=== PATIENT | female | born 1940 | race Caucasian/White ===

== ENCOUNTER 2023-02-12 15:58 | Observation (INO) | payer OTHER ==
[~2023-02-12] VITALS: Ht 167.6 cm; Wt 83.4 kg
[~2023-02-12 15:58] MED LIST: ALB2.5IS; ALEN70TA74; AMLO1TAB22; AMLO1TAB23; BUSP7.5T8; DULO-141; GLIP2.5T9; HYDR-4227; HYDR-4297; METO1TAB9; NIFEDIPINE; WARF4TAB69
[2023-02-12] MEDS ORDERED: ALBUTEROL SULF 2.5 MG/0.5ML(0.5%) NEB SOLN NEB ONE ×2 (16:00→20:15)
[2023-02-12] MEDS ORDERED: IPRATROPIUM BROM 0.5 MG/2.5ML INH SOL NEB ONE ×2 (16:00→20:15)
[2023-02-12] MEDS ORDERED: methylPREDNISolone SOD SUCC 125 MG/2 ML VL IV ONE (16:00)
[2023-02-12 16:25] VITALS: PULSE 101; RESP 18; O2SAT 99
[2023-02-12 16:59] LABS: Basophils # (auto) 0 10 ^3/uL (0-0.2); Basophils % (auto) 0.2 % (0.0-2.0); Eosinophils # (auto) 0 10 ^3/uL (0-0.8); Hematocrit 38.8 % (36.0-46.0); Hemoglobin 12.9 g/dL (12.2-16.2); Lymphocytes # (auto) 0.9 10 ^3/uL (0.4-5.4); Lymphocytes % (auto) 5.4 % (10.0-50.0); Mean Corpuscular Hgb Conc. 33.3 g/dL (32.0-36.0); Mean Corpuscular Volume 90.1 fL (80.0-100.0); Monocytes % (auto) 6.1 % (0.0-12.0); Neutrophils # (auto) 14.4 10 ^3/uL (1.6-8.6); Neutrophils % (auto) 88.3 % (37.0-80.0); Nucleated Red Blood Cells % 0.1 %; Red Blood Cells 4.31 10^6/uL (4.0-5.20); Red Cell Distribution Width 13.2 % (11.8-14.3); White Blood Cell 16.3 10^3/uL (4.4-10.8)
[2023-02-12 17:28] LABS: Alanine Aminotransferase 13 U/L (7-40); Alkaline Phosphatase 95 U/L (46-116); Anion Gap 9 (5-15); Calcium 9.5 mg/dL (8.7-10.4); Carbon Dioxide 30 mmol/L (20-30); Chloride 98 mmol/L (98-107); Glucose 208 mg/dL (74-106); Potassium 4.9 mmol/L (3.5-5.1); Sodium 137 mmol/L (136-145)
[2023-02-12 17:29] LABS: Albumin 4.1 g/dL (3.2-4.8); Aspartate Aminotransferase 19 U/L (13-40); BUN/Creatinine Ratio 34.1 (10.0-20.0); Bilirubin, Total 0.4 mg/dL (0.2-1.0); Blood Urea Nitrogen 47 mg/dL (9-23); Total Protein 6.9 g/dL (5.7-8.2)
[2023-02-12 17:49] LABS: COVID19 ANTIGEN SOFIA FIA NEGATIVE (NEGATIVE); Rapid Influenza A Negative (Negative)
[2023-02-12 17:50] LABS: Rapid Influenza B Positive (Negative)
[2023-02-12 19:30] VITALS: PULSE 87; RESP 25; O2SAT 94
[2023-02-12 20:31] LABS: Base Excess 4.5 mmol/L (-2.0-2.0)
[2023-02-12] MEDS ORDERED: ONDANSETRON HCL 4 MG/2 ML VIAL IV PRN (23:15)
[2023-02-12] MEDS ORDERED: NITROGLYCERIN 0.4 MG SL TAB SL PRN (23:15)
[2023-02-12] MEDS ORDERED: MORPHINE SULFATE INJ 2 MG/ml SYRG IV PRN (23:15)
[2023-02-12] MEDS ORDERED: ENOXAPARIN SOD 40 MG/0.4 ML SYRINGE SC ONE (23:30)
[2023-02-12] MEDS ORDERED: VANCOMYCIN PER PHARMACY 0 MG IV SCH (23:30)
[2023-02-12] MEDS ORDERED: DEXTROSE (50%) 50ML SYRG IV PRN (23:45)
[2023-02-13] VITALS (13 sets, daily range): BP systolic 126–175; BP diastolic 67–83; PULSE 65–102; RESP 20–29; TEMP 97.8–98; O2SAT 92–100
[2023-02-13] MEDS: IPRATROPIUM BROM 0.5 MG/2.5ML INH SOL NEB SCH ×4 (00:10→23:03)
[2023-02-13] MEDS: ALBUTEROL SULF 2.5 MG/0.5ML(0.5%) NEB SOLN NEB SCH ×4 (00:10→23:03)
[2023-02-13] MEDS ORDERED: VANCOMYCIN 1GM/200ML 200 ML IV SCH (02:00)
[2023-02-13] MEDS ORDERED: PIPERACILLIN-TAZOB 3.375GM 100 ML IV SCH (06:00)
[2023-02-13 06:22] LABS: Basophils # (auto) 0 10 ^3/uL (0-0.2); Eosinophils # (auto) 0 10 ^3/uL (0-0.8); Hematocrit 37.2 % (36.0-46.0); Hemoglobin 12.3 g/dL (12.2-16.2); Lymphocytes # (auto) 0.9 10 ^3/uL (0.4-5.4); Lymphocytes % (auto) 6.9 % (10.0-50.0); Mean Corpuscular Hemoglobin 30.2 pg (28.0-32.0); Mean Corpuscular Hgb Conc. 33.1 g/dL (32.0-36.0); Mean Corpuscular Volume 91.1 fL (80.0-100.0); Monocytes # (auto) 0.6 10 ^3/uL (0-1.3); Monocytes % (auto) 4.4 % (0.0-12.0); Neutrophils # (auto) 11.3 10 ^3/uL (1.6-8.6); Neutrophils % (auto) 88.7 % (37.0-80.0); Red Blood Cells 4.09 10^6/uL (4.0-5.20); Red Cell Distribution Width 13.5 % (11.8-14.3); White Blood Cell 12.7 10^3/uL (4.4-10.8)
[2023-02-13 06:34] LABS: INR 1.16 (0.9-1.15); Prothrombin Time 12.1 sec (9.3-11.8)
[2023-02-13 06:39] LABS: Alanine Aminotransferase 12 U/L (7-40); Albumin 3.8 g/dL (3.2-4.8); Alkaline Phosphatase 88 U/L (46-116); Anion Gap 8 (5-15); Aspartate Aminotransferase 15 U/L (13-40); BUN/Creatinine Ratio 24.5 (10.0-20.0); Calcium 9.7 mg/dL (8.5-10.1); Carbon Dioxide 30 mmol/L (20-30); Chloride 98 mmol/L (98-107); Glucose 302 mg/dL (74-106); Potassium 4.4 mmol/L (3.5-5.1); Sodium 136 mmol/L (136-145)
[2023-02-13 06:40] LABS: Bilirubin, Total 0.4 mg/dL (0.2-1.0); Total Protein 6.6 g/dL (5.7-8.2)
[2023-02-13 06:45] LABS: Blood Urea Nitrogen 35 mg/dL (9-23)
[2023-02-13] MEDS: methylPREDNISolone SOD SUCC 125 MG/2 ML VL IV SCH ×3 (06:45→21:25)
[2023-02-13] MEDS: InsuLIN REG 1unit/0.01ml Soln (100units/ml) SC SCH ×4 (06:56→22:00)
[2023-02-13] MEDS: ACCU-CHEK COMFORT CURVE STRIP VI SCH ×4 (06:57→22:00)
[2023-02-13] MEDS: hydrALAZINE HCL 20 MG/ML VL IV PRN ×2 (11:10→18:44)
[2023-02-13] MEDS ORDERED: levoFLOXacin 500MG 100 ML IV ONE (12:00)
[2023-02-13] MEDS: SODIUM CHLORIDE 0.9% 1,000 ML IV SCH (12:58)
[2023-02-13] MEDS ORDERED: CLON0.1T PO (14:02)
[2023-02-13] MEDS ORDERED: PRED20TA2 PO (14:02)
[2023-02-13] MEDS ORDERED: LISI10TA34 PO (14:02)
[2023-02-13] MEDS ORDERED: ALBU108A5 INH (14:02)
[2023-02-13] MEDS: OSELTAMIVIR 30 MG CAP PO SCH (14:45)
[2023-02-13] MEDS: VANCOMYCIN 1GM/200ML 200 ML IV SCH (21:10)
[2023-02-13] MEDS: APIXABAN 2.5 MG TAB PO SCH (21:10)
[2023-02-14] VITALS (11 sets, daily range): BP systolic 154–160; BP diastolic 77–99; PULSE 78–121; RESP 17–24; TEMP 97.8–98.4; O2SAT 90–99
[2023-02-14] MEDS: ALBUTEROL SULF 2.5 MG/0.5ML(0.5%) NEB SOLN NEB SCH ×3 (00:56→11:58)
[2023-02-14] MEDS: IPRATROPIUM BROM 0.5 MG/2.5ML INH SOL NEB SCH ×3 (00:56→11:58)
[2023-02-14] MEDS: VANCOMYCIN 1GM/200ML 200 ML IV SCH (03:00)
[2023-02-14 05:48] LABS: Basophils # (auto) 0 10 ^3/uL (0-0.2); Basophils % (auto) 0.1 % (0.0-2.0); Eosinophils # (auto) 0 10 ^3/uL (0-0.8); Eosinophils % (auto) 0.1 % (0.0-7.0); Hematocrit 37.3 % (36.0-46.0); Hemoglobin 12.6 g/dL (12.2-16.2); Lymphocytes # (auto) 0.6 10 ^3/uL (0.4-5.4); Lymphocytes % (auto) 5.9 % (10.0-50.0); Mean Corpuscular Hgb Conc. 33.8 g/dL (32.0-36.0); Mean Corpuscular Volume 91.8 fL (80.0-100.0); Monocytes # (auto) 0.4 10 ^3/uL (0-1.3); Monocytes % (auto) 3.9 % (0.0-12.0); Neutrophils # (auto) 9.3 10 ^3/uL (1.6-8.6); Red Blood Cells 4.06 10^6/uL (4.0-5.20); Red Cell Distribution Width 13.6 % (11.8-14.3); White Blood Cell 10.4 10^3/uL (4.4-10.8)
[2023-02-14 05:59] LABS: Alanine Aminotransferase 10 U/L (7-40); Albumin 3.8 g/dL (3.2-4.8); Alkaline Phosphatase 74 U/L (46-116); Anion Gap 7 (5-15); Aspartate Aminotransferase 19 U/L (13-40); BUN/Creatinine Ratio 23.5 (10.0-20.0); Bilirubin, Total 0.5 mg/dL (0.2-1.0); Blood Urea Nitrogen 28 mg/dL (9-23); Calcium 9.5 mg/dL (8.7-10.4); Carbon Dioxide 27 mmol/L (20-30); Chloride 101 mmol/L (98-107); Glucose 180 mg/dL (74-106); Potassium 4.4 mmol/L (3.5-5.1); Sodium 135 mmol/L (136-145); Total Protein 6.6 g/dL (5.7-8.2)
[2023-02-14] MEDS: InsuLIN REG 1unit/0.01ml Soln (100units/ml) SC SCH ×2 (06:16→11:30)
[2023-02-14] MEDS: hydrALAZINE HCL 20 MG/ML VL IV PRN (06:23)
[2023-02-14] MEDS: ACCU-CHEK COMFORT CURVE STRIP VI SCH ×2 (06:33→11:30)
[2023-02-14] MEDS ORDERED: FLUCONAZOLE 100 MG TAB PO ONE (09:15)
[2023-02-14] MEDS ORDERED: levoFLOXacin 250MG 50 ML IV SCH (10:00)
[2023-02-14] MEDS ORDERED: NYSTATIN TOPICAL CREAM 15GM TOP SCH (10:00)
[2023-02-14] MEDS: OSELTAMIVIR 30 MG CAP PO SCH (10:25)
[2023-02-14] MEDS: SODIUM CHLORIDE 0.9% 1,000 ML IV SCH (10:25)
[2023-02-14] MEDS: APIXABAN 2.5 MG TAB PO SCH (10:26)
[2023-02-14] MEDS ORDERED: OSELTAMIVIR 30 MG CAP PO SCH (22:00)
== END 2023-02-14 15:12 ==
LOC: EDUNIT# 15:58 → ER 15:58 → EDBD 15:58 → OVERFLOW 23:16 → CENTRAL 02-13 10:10
PROVIDERS: ADMIT Internal Medicine; ATTEND Internal Medicine
DX: J96.21 Acute and chronic respiratory failure with hypoxia (principal); Z20.822 Contact with and (suspected) exposure to COVID-19; J44.1 Chronic obstructive pulmonary disease with (acute) exacerbation; F03.90 Unspecified dementia, unspecified severity, without behavioral disturbance, psychotic disturbance, mood disturbance, and anxiety; J10.1 Influenza due to other identified influenza virus with other respiratory manifestations; I25.10 Atherosclerotic heart disease of native coronary artery without angina pectoris; E11.9 Type 2 diabetes mellitus without complications; I10 Essential (primary) hypertension; E78.5 Hyperlipidemia, unspecified; Z86.73 Personal history of transient ischemic attack (TIA), and cerebral infarction without residual deficits; Z79.84 Long term (current) use of oral hypoglycemic drugs; Z86.61 Personal history of infections of the central nervous system
CPT/HCPCS: 36415; 36600; 71045; 80053; 82805; 82962; 83605; 83880; 84484; 85025; 85610; 87040; 87077; 87081; 87186; 87426; 87804; 93005; 94640; 96365; 96366; 96368; 96372; 96375; 96376; 99291; G0378; J0360; J1650; J1815; J1956; J2930; J3370; J7644; G9035

== ENCOUNTER 2024-04-03 01:59 | Inpatient (IN) | payer OTHER ==
[~2024-04-03] VITALS: Ht 165.1 cm; Wt 89.5 kg
[~2024-04-03 01:59] MED LIST changes: +ALBU108A5 INH; +CLON0.1T PO; +HYDR-2792; -HYDR-4227; -HYDR-4297; +HYDR50TA47; +LISI10TA34 PO; +PRED20TA2 PO
--- NOTE | 2024-04-03 02:21 | ED.PDOC ---
Altered Mental Status HPI Comments 84-year-old female came to ER via EMS for altered level of consciousness. Per granddaughter who accompanies patient, patient was noted to be laying at bed for the past 2 days. Yesterday, was noted by family that patient has become unresponsive, would be able to answer yes or no only to questions. Patient denies being in any pain. Patient does have history of hypertension, diabetes, AFIB, COPD and CVA (18 years ago). 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 Allergies: Coded Allergies: Penicillins (Verified Allergy, Unknown, 02/13/23) Home Meds Reported Medications Albuterol Sulfate (Albuterol Sulfate Hfa) 108 Mcg/Act Aer, INH 02/13/23 Lisinopril (Lisinopril) 10 Mg Tab, 1 TAB PO DAILY 02/13/23 Clonidine Hydrochloride (Clonidine Hcl) 0.1 Mg Tab, 1 TAB PO TID 02/13/23 Prednisone (Prednisone) 20 Mg Tab, 1 TAB PO BID 02/13/23 Amlodipine Besylate (Amlodipine Besylate) 10 Mg Tab 07/30/18 Warfarin Sodium (Warfarin Sodium) 2 Mg Tab 07/30/18 Albuterol Sulfate (Ventolin) 2.5 Mg/3 Ml Nb 07/30/18 Amlodipine Besylate (Amlodipine Besylate) 5 Mg Tab 07/30/18 Metoprolol Succinate (Metoprolol Succinate Er) 100 Mg Tab 07/30/18 Alendronate Sodium (Alendronate Sodium) 70 Mg Tab 07/30/18 Glipizide (Glipizide Er) 2.5 Mg Tab 07/30/18 [Nifedipine] No Conflict Check 07/30/18 Hydralazine Hcl (Hydralazine Hcl) 10 Mg Tab 07/30/18 Hydralazine Hcl (Hydralazine Hcl) 50 Mg Tab 07/30/18 Buspirone Hcl (Buspirone Hcl) 7.5 Mg Tab 07/30/18 Duloxetine Hydrochloride (Duloxetine Hydrochloride) 30 Mg Cap 07/30/18 Information Source: Relative (GrandChild), Emergency Med Personnel Mode of Arrival: EMS Severity: Unable to Care for Self, Unresponsive Timing: Hours Duration: Since onset Prehospital treatment: Accucheck Quality: Decreased Alertness, Change in Behavior, Confusion Recent: None History of: CVA, Diabetes Past Medical History PAST MEDICAL HISTORY: AFIB, Cancer, COPD, CVA, DM, HTN Surgical History: Denies all surgeries IT PORTFOLIO MANAGER History: No Pertinent IT PORTFOLIO MANAGER History Family History Family History: Reviewed,noncontributory to illness Social History Smoker: Non-Smoker Alcohol: Denies ETOH Use Drugs: Denies Drug Use Lives In: Home Unable to Obtain due to: Altered Mental Status Physical Exam General Appearance: No Apparent Distress, Normal HEENT: Normal ENT Inspection, Pharynx Normal, TMs Normal Neck: Full Range of Motion, Non-Tender, Normal, Normal Inspection Respiratory: Chest Non-Tender, Lungs Clear, No Accessory Muscle Use, No Respir atory Distress, Normal Breath Sounds Cardiovascular: No Edema, No JVD, No Murmur, No Gallop, Normal Peripheral Pulses, Regular Rate/Rhythm Breast Exam: Deferred Gastrointestinal: No Organomegaly, Non Tender, No Pulsatile Mass, Normal Bowel Sounds, Soft Genitalia: Deferred Pelvic: Deferred Rectal: Deferred Extremities: No calf tenderness, Normal capillary refill, Normal inspection, Normal range of motion, Non-tender, No pedal edema Musculoskeletal : Apperance: Normal 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 Was a procedure done?: No Differential Diagnosis (ALOC) Differential Diagnosis: Encephalopathy, Hypoxemia, CVA, Mass Lesion, Heart Failure, Renal Failure X-Ray, Labs, Meds, VS Vital Signs Date Time Temp Pulse Resp B/P (MAP) Pulse Ox O2 Delivery O2 Flow Rate FiO2 04/03/24 03:02 76 18 96 Nasal Cannula* 2 28 04/03/24 02:51 98.4 85 20 194/104 (134) 97 98.4 04/03/24 02:06 97.9 93 25 183/114 (137) 98 04/03/24 02:03 100 Lab Test 04/03/24 04:30 04/03/24 02:29 Range/Units Urine Color Light orange Yellow Urine Clarity Turbid H Clear Urine pH 5.5 5.0-9.0 Urine Specific [place] 1.027 1.001-1.035 Urine Protein 2+ H Negative Urine Ketones Trace Negative Urine Blood Trace H Negative /uL Urine Nitrite Negative Negative Urine Bilirubin 1+ H Negative Urine Urobilinogen 2 H Negative mg/dL Urine Leukocyte Esterase Negative Negative /uL Urine RBC 2 0 - 4 /hpf Urine Microscopic WBC 8 H 0-5 /HPF Urine Squamous Epithelial Cells None seen <5 /hpf Urine Bacteria Few H None Seen /hpf Urine Hyaline Casts Few 0 - 2 /lpf Urine Granular Casts Mod 0 /lpf Urine Mucus Few None Seen Urine Glucose 1+ H Normal mg/dL White Blood Count 8.9 4.4-10.8 10^3/uL Red Blood Count 4.65 4.0-5.20 10^6/uL Hemoglobin 13.7 12.2-16.2 g/dL Hematocrit 40.5 36.0-46.0 % Mean Corpuscular Volume 87.2 80.0-100.0 fL Mean Corpuscular Hemoglobin 29.4 28.0-32.0 pg Mean Corpuscular Hemoglobin Concent 33.7 32.0-36.0 g/dL Red Cell Distribution Width 14.9 H 11.8-14.3 % Platelet Count 200 140-450 10^3/uL Mean Platelet Volume 7.8 6.9-10.8 fL Neutrophils (%) (Auto) 74.0 37.0-80.0 % Lymphocytes (%) (Auto) 16.9 10.0-50.0 % Monocytes (%) (Auto) 5.3 0.0-12.0 % Eosinophils (%) (Auto) 2.6 0.0-7.0 % Basophils (%) (Auto) 1.2 0.0-2.0 % Neutrophils # (Auto) 6.6 1.6-8.6 10 ^3/uL Lymphocytes # (Auto) 1.5 0.4-5.4 10 ^3/uL Monocytes # (Auto) 0.5 0-1.3 10 ^3/uL Eosinophils # (Auto) 0.2 0-0.8 10 ^3/uL Basophils # (Auto) 0.1 0-0.2 10 ^3/uL Nucleated Red Blood Cells 0.2 % Sodium Level 138 136-145 mmol/L Potassium Level 4.3 3.5-5.1 mmol/L Chloride Level 103 98-107 mmol/L Carbon Dioxide Level 26 20-31 mmol/L Anion Gap 9 5-15 Blood Urea Nitrogen 20 9-23 mg/dL Creatinine 1.48 H 0.550-1.02 mg/dL Glomerular Filtration Rate Calc 34 >90 mL/min BUN/Creatinine Ratio 13.5 10.0-20.0 Serum Glucose 250 H 74-106 mg/dL Lactic Acid Level 1.7 0.4-2.0 mmol/L Calcium Level 10.6 H 8.7-10.4 mg/dL Troponin I High Sensitivity 14 </=34 ng/L B-Type Natriuretic Peptide 274.78 0-100 pg/mL Time of 1ST Reevaluation: 02:14 Reevaluation 1ST: Unchanged Patient Education/Counseling: Diagnosis, Treatment Family Education/Counseling: Diagnosis, Treatment Departure 1 Departure Time of Disposition: 05:24 (Patient with worsening confusion. Patient is A&O times 0. Workup so far is unrevealing. We will admit patient for further wo rkup.) Impression: Primary Impression: Metabolic encephalopathy Additional Impression: Generalized weakness Disposition: ADMITTED INPATIENT Admit to: Med Surg Condition: Serious Critical Care Note Critical Care Time?: Yes (35 min-critical care time only) Critical care comment: Altered level of consciousness Stability Stability form required: No Heart Score Heart Score: Heart Score Response (Comments) Value History N/A 0 EKG N/A 0 Age N/A 0 Risk Factors N/A 0 Troponin N/A 0 Total 0 I personally scribed for KYLAH PINZON MD ([email or web address]) on 04/03/24 at 02:21. Electronically submitted by Aman Davis ([email or web address]). KYLAH PINZON MD Apr 03, 2024 02:21
[2024-04-03 02:53] LABS: Basophils # (auto) 0.1 10 ^3/uL (0-0.2); Basophils % (auto) 1.2 % (0.0-2.0); Eosinophils # (auto) 0.2 10 ^3/uL (0-0.8); Eosinophils % (auto) 2.6 % (0.0-7.0); Hematocrit 40.5 % (36.0-46.0); Hemoglobin 13.7 g/dL (12.2-16.2); Lymphocytes # (auto) 1.5 10 ^3/uL (0.4-5.4); Lymphocytes % (auto) 16.9 % (10.0-50.0); Mean Corpuscular Hemoglobin 29.4 pg (28.0-32.0); Mean Corpuscular Hgb Conc. 33.7 g/dL (32.0-36.0); Mean Corpuscular Volume 87.2 fL (80.0-100.0); Monocytes # (auto) 0.5 10 ^3/uL (0-1.3); Monocytes % (auto) 5.3 % (0.0-12.0); Neutrophils # (auto) 6.6 10 ^3/uL (1.6-8.6); Nucleated Red Blood Cells % 0.2 %; Platelet Count (auto) 200 10^3/uL (140-450); Red Blood Cells 4.65 10^6/uL (4.0-5.20); Red Cell Distribution Width 14.9 % (11.8-14.3); White Blood Cell 8.9 10^3/uL (4.4-10.8)
[2024-04-03 03:02] VITALS: PULSE 76; RESP 18; O2SAT 96
[2024-04-03 03:03] LABS: Chloride 103 mmol/L (98-107); Potassium 4.3 mmol/L (3.5-5.1); Sodium 138 mmol/L (136-145)
[2024-04-03 03:04] LABS: Anion Gap 9 (5-15); Carbon Dioxide 26 mmol/L (20-31)
[2024-04-03 03:09] LABS: BUN/Creatinine Ratio 13.5 (10.0-20.0); Blood Urea Nitrogen 20 mg/dL (9-23)
[2024-04-03 03:13] LABS: Calcium 10.6 mg/dL (8.7-10.4); Glucose 250 mg/dL (74-106)
--- NOTE | 2024-04-03 04:04 | DVH ---
EXAM: CT HEAD WITHOUT CONTRAST INDICATION: ams TECHNIQUE: CT of the head without intravenous contrast. Coronal and sagittal reformatted images are submitted. Radiation Dose : 1. Head: CT Dose: CTDI volume is 55.6 mGy. Dose-length product is 982.5 mGy*cm The dose indicators for CT are the volume Computed Tomography (CT) Dose Index (CTDIvol) and the Dose Length Product (DLP), and are measured in units of mGy and mGy-cm, respectively. These indicators are not patient dose, but values generated from the CT scanner acquisition factors. The report includes radiation exposure data for exposures received during this examination. All CT scans at this medical facility are performed using dose modulation techniques as appropriate to a performed exam including the following: Automated exposure control was utilized; adjustment of the MA and/or KV according to patient size; and use of iterative reconstruction technique. COMPARISON: None FINDINGS: There is no evidence of acute intracranial hemorrhage, extra-axial collection, mass effect, midline s hift, herniation or hydrocephalus. There is encephalomalacia in the left frontal lobe. There are periventricular and subcortical hypoden sities, nonspecific, but likely reflecting sequelae of chronic microvascular ischemic changes. The ventricles, sulci and cisterns are age appropriate. The guillaume-white differentiation is intact. The visualized paranasal sinuses and mastoid air cells are clear. No depressed calvarial fracture. The surrounding soft tissues are unremarkable. IMPRESSION: 1. No evidence of acute intracranial abnormality.
[2024-04-03 04:59] LABS: Urine Bacteria FEW /hpf (None Seen); Urine Blood TRACE /uL (Negative); Urine Clarity Turbid (Clear); Urine Hyaline Cast FEW /lpf (0 - 2); Urine Mucus FEW (None Seen); Urine Protein, UAD 2+ (Negative); Urine Specific Gravity 1.027 (1.001-1.035); Urine Squamous Epithelial Cell None Seen /hpf (<5); Urine Urobilinogen 2 mg/dL (Negative); Urine WBC 8 /HPF (0-5); Urine pH 5.5 (5.0-9.0)
[2024-04-03 05:11] LABS: Urine Color LIGHT ORANGE (Yellow)
--- NOTE | 2024-04-03 05:23 | DVH ---
CHEST RADIOGRAPH Indication: ams Technique: Single frontal view of the chest was obtained Comparison: XY CHEST PORTABLE on DOS: 02/12/23 FINDINGS: Lines and Tubes: None Lungs: No focal consolidation. Pleura: No effusion. No pneumothorax. Cardiomediastinal contours: Unremarkable Bones: No acute osseous abnormality. IMPRESSION: 1. No acute cardiopulmonary disease.
--- NOTE | 2024-04-03 06:46 | ECG ---
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
[2024-04-03] MEDS ORDERED: levoFLOXacin 500MG 100 ML IV ONE (07:15)
[2024-04-03 07:30] VITALS: PULSE 74; O2SAT 96
[2024-04-03] MEDS: SODIUM CHLORIDE 0.9% 500 ML IV ONE (08:22)
[2024-04-03] MEDS: hydrALAZINE HCL 20 MG/ML VL IV ONE (08:26)
[2024-04-03] MEDS: ASPirin 81 mg TAB PO ONE (08:26)
[2024-04-03] MEDS: cloNIDine HCL 0.1 MG TAB PO ONE ×2 (09:25→14:14)
[2024-04-03 10:16] LABS: INR 1.08 (0.9-1.15); Prothrombin Time 11.4 sec (9.3-11.8)
[2024-04-03] MEDS: IOHEXOL 350 MG/ML 100ML IJ ONE (13:51)
--- NOTE | 2024-04-03 14:18 | DVH ---
Procedure: CT ANGIO HEAD/Neck HISTORY: VESSEL OCCLUSION Comparison Study: None. Exam Date:04/03/2024 01:49 PM TECHNIQUE: CTA head without and with intravenous contrast. CTA neck with intravenous contrast. 3D hitesh [employer] postprocessing was performed and images were used for interpretation and reporting. 100 cc of Omni paque 300 contrast was injected intravenously. All CT scans at this medical facility are performed using dose modulation techniques as appropriate t o a performed exam including the following: Automated exposure control was utilized; adjustment of th e MA and/or KV according to patient size; and use of iterative reconstruction technique. Radiation Dose : CT Dose: CTDI volume is 22 mGy. Dose-length product is 834 mGy*cm FINDINGS: CTA head: The visualized distal internal carotid, anterior and middle cerebral arteries demonstrate normal kimber maulik without hemodynamically significant stenosis or occlusion. The vertebral, basilar, and posterior cerebral arteries also demonstrate normal caliber without hemod ynamically significant stenosis or occlusion. There is no evidence of intracranial arterial aneurysm or arteriovenous malformation. There is encephalomalacia in the left frontal lobe. There is no hydrocephalus or extra-axial fluid co llection. CTA neck: The visualized thoracic aortic arch and proximal great vessels are unremarkable. The bilateral common, internal and external carotid arteries are patent without hemodynamically signi ficant stenosis. The cervical segments of the right and left vertebral arteries are patent without flow-limiting steno sis or obvious dissection.. There is no evidence of a soft tissue neck mass or pathologically enlarged cervical lymph nodes. Lung apices are clear. There is no acute osseous abnormality. IMPRESSION: 1. No hemodynamically significant stenosis, proximal occlusion or aneurysm in the intracranial arteri es. 2. No hemodynamically significant stenosis in the cervical segments of the carotid and vertebral damaso sharona. HS:Y
[2024-04-03] MEDS ORDERED: NITROGLYCERIN 0.4 MG SL TAB SL PRN ×2 (15:45→16:15)
[2024-04-03] MEDS ORDERED: hydrALAZINE HCL 20 MG/ML VL IV PRN (15:45)
[2024-04-03] MEDS ORDERED: MORPHINE SULFATE INJ 2 MG/ml SYRG IV PRN ×2 (15:45→16:15)
--- NOTE | 2024-04-03 16:14 | DVHHP2 ---
Admitting Diagnosis: confusion History of Present Illness HPI 84 F who comes in via EMS for ALOC. As per family patient could not speak and was only answering to yes or no questions which is not herself. She was unable to walk without 2 person assist and normally is able to ambulate on her own. This status change was abruptly over the last 3 days and when she did no improve the family called 911 to bring to ER. Head CT and head/neck cta negative and UA negative for UTI with lbs nml. Will admit for neuro eval and MRI/EEG to tele. Home Meds Reported Medications Albuterol Sulfate (Albuterol Sulfate Hfa) 108 Mcg/Act Aer, INH 02/13/23 Lisinopril (Lisinopril) 10 Mg Tab, 1 TAB PO DAILY 02/13/23 Clonidine Hydrochloride (Clonidine Hcl) 0.1 Mg Tab, 1 TAB PO TID 02/13/23 Prednisone (Prednisone) 20 Mg Tab, 1 TAB PO BID 02/13/23 Amlodipine Besylate (Amlodipine Besylate) 10 Mg Tab 07/30/18 Warfarin Sodium (Warfarin Sodium) 2 Mg Tab 07/30/18 Albuterol Sulfate (Ventolin) 2.5 Mg/3 Ml Nb 07/30/18 Amlodipine Besylate (Amlodipine Besylate) 5 Mg Tab 07/30/18 Metoprolol Succinate (Metoprolol Succinate Er) 100 Mg Tab 07/30/18 Alendronate Sodium (Alendronate Sodium) 70 Mg Tab 07/30/18 Glipizide (Glipizide Er) 2.5 Mg Tab 07/30/18 [Nifedipine] No Conflict Check 07/30/18 Hydralazine Hcl (Hydralazine Hcl) 10 Mg Tab 07/30/18 Hydralazine Hcl (Hydralazine Hcl) 50 Mg Tab 07/30/18 Buspirone Hcl (Buspirone Hcl) 7.5 Mg Tab 07/30/18 Duloxetine Hydrochloride (Duloxetine Hydrochloride) 30 Mg Cap 07/30/18 Past Medical History Cardiac: AFIB, HTN, Hyperlipidemia Pulmonary: COPD Central Nervous System: CVA Review of Systems Constitutional: No symptom reported Ears, Nose, & Throat: No symptom reported Pulmonary/Respiratory: No symptom reported Gastrointestinal: No symptom reported Musculoskeletal: No symptom reported Psychiatric: Confusion, Weakness H&P Exam Vital Signs Vital Signs Date Time Temp Pulse Resp B/P (MAP) Pulse Ox O2 Delivery O2 Flow Rate FiO2 04/03/24 15:14 119/62 04/03/24 11:30 88 22 98 04/03/24 07:30 Nasal Cannula* 2 28 04/03/24 07:30 97.8 97.8 General Appeara: Well developed Head Exam: Normal inspection Nasal Exam: Normal inspection Pulmonary/Respiratory: Decreased breath sounds Cardiovascular/Chest: Normal inspection, Irregularly irregular Labs/Xrays Labs Test 04/03/24 08:34 04/03/24 04:30 04/03/24 02:29 Range/Units Prothrombin Time 11.4 9.3-11.8 sec Prothrombin Time INR 1.08 0.9-1.15 Urine Color Light orange Yellow Urine Clarity Turbid H Clear Urine pH 5.5 5.0-9.0 Urine Specific [place] 1.027 1.001-1.035 Urine Protein 2+ H Negative Urine Ketones Trace Negative Urine Blood Trace H Negative /uL Urine Nitrite Negative Negative Urine Bilirubin 1+ H Negative Urine Urobilinogen 2 H Negative mg/dL Urine Leukocyte Esterase Negative Negative /uL Urine RBC 2 0 - 4 /hpf Urine Microscopic WBC 8 H 0-5 /HPF Urine Squamous Epithelial Cells None seen <5 /hpf Urine Bacteria Few H None Seen /hpf Urine Hyaline Casts Few 0 - 2 /lpf Urine Granular Casts Mod 0 /lpf Urine Mucus Few None Seen Urine Glucose 1+ H Normal mg/dL White Blood Count 8.9 4.4-10.8 10^3/uL Red Blood Count 4.65 4.0-5.20 10^6/uL Hemoglobin 13.7 12.2-16.2 g/dL Hematocrit 40.5 36.0-46.0 % Mean Corpuscular Volume 87.2 80.0-100.0 fL Mean Corpuscular Hemoglobin 29.4 28.0-32.0 pg Mean Corpuscular Hemoglobin Concent 33.7 32.0-36.0 g/dL Red Cell Distribution Width 14.9 H 11.8-14.3 % Platelet Count 200 140-450 10^3/uL Mean Platelet Volume 7.8 6.9-10.8 fL Neutrophils (%) (Auto) 74.0 37.0-80.0 % Lymphocytes (%) (Auto) 16.9 10.0-50.0 % Monocytes (%) (Auto) 5.3 0.0-12.0 % Eosinophils (%) (Auto) 2.6 0.0-7.0 % Basophils (%) (Auto) 1.2 0.0-2.0 % Neutrophils # (Auto) 6.6 1.6-8.6 10 ^3/uL Lymphocytes # (Auto) 1.5 0.4-5.4 10 ^3/uL Monocytes # (Auto) 0.5 0-1.3 10 ^3/uL Eosinophils # (Auto) 0.2 0-0.8 10 ^3/uL Basophils # (Auto) 0.1 0-0.2 10 ^3/uL Nucleated Red Blood Cells 0.2 % Sodium Level 138 136-145 mmol/L Potassium Level 4.3 3.5-5.1 mmol/L Chloride Level 103 98-107 mmol/L Carbon Dioxide Level 26 20-31 mmol/L Anion Gap 9 5-15 Blood Urea Nitrogen 20 9-23 mg/dL Creatinine 1.48 H 0.550-1.02 mg/dL Glomerular Filtration Rate Calc 34 >90 mL/min BUN/Creatinine Ratio 13.5 10.0-20.0 Serum Glucose 250 H 74-106 mg/dL Lactic Acid Level 1.7 0.4-2.0 mmol/L Calcium Level 10.6 H 8.7-10.4 mg/dL Troponin I High Sensitivity 14 </=34 ng/L B-Type Natriuretic Peptide 274.78 0-100 pg/mL Assessment/Plan Primary Diagnosis 1) Acute CVA 2) Afib 3) DM 4) HTN 5) HLD 6) COPD 7) Hx of CVA plan; admit tele, eliquis bid as per home dose, MRI brain. EEG, neuro consult, PT eval, daily labs, will follow along Plan discussed with: Other (n) SABRINA SWAN MD Apr 03, 2024 16:14
--- NOTE | 2024-04-03 16:47 | DVH ---
EXAM: MRI BRAIN HEAD WO CONTRAST CLINICAL HISTORY: cva COMPARISON: CT head 04/03/2024 TECHNIQUE: Multiplanar, multisequence magnetic resonance imaging of the brain was performed without intravenous contrast. FINDINGS: Limited evaluation due to artifact especially the blood sensitive sequence. Moderate diffuse brain at rophy. Moderate chronic small-vessel ischemic changes. Left frontal lobe encephalomalacia. No hemorrhages, masses, mass effect, midline shift, herniation or cytotoxic edema following large vas cular territory. No intra-axial or extra-axial fluid collections. No evidence of hydrocephalus. The basal cisterns are patent. There is partially empty sella. The cerebellar tonsils are in normal position. The cerebellum is othe rwise unremarkable. Bilateral lens replacement. Otherwise orbits and globes are unremarkable. The paranasal sinuses are clear. Minimal mucosal thickening of the mastoids. There are no worrisome calvarial lesions. IMPRESSION: No evidence of acute intracranial abnormalities.
[2024-04-03] MEDS: APIXABAN 5 MG TAB PO SCH (17:40)
--- NOTE | 2024-04-03 17:54 | DVHCONRES ---
Date Seen: Apr 03, 2024 Resident Creating Document: BRIDGETTE ESPITIA RESIDENT Referring Physician Dr. Ruelas Reason for Consultation Cardiology consult for CVA History of Present Illness This is an 84-year-old female who comes into the ED by EMS with chief complain of ALOC. She has a past medical history relevant for hypertension, hyperlipidemia, COPD, atrial fibrillation, stroke 17 years ago, osteoporosis. Home medications: Amlodipine 10 mg p.o. q.d. Eliquis 2.5 mg p.o. b.i.d., metoprolol 100 mg p.o. q.d. History was obtained from the granddaughter as patient is currently disoriented. She stated that since last two the patient has been confused, with inability to perform activities of daily living, which got worse yesterday, today the patient could not speak, was unable to move, and unable to do any of her daily activities. Per granddaughter, patient did not complain of anything such as chest pain, shortness of breath, fevers, chills, cough. In the ED patient has had a head CT which was unremarkable, IV fluids were given, antibiotics were given, hydralazine 10 mg IV once was also given, as well as aspirin, 2 L clonidine 0.2 mg was given, a head CT with contrast was also performed which was unremarkable, blood pressure initially was at 183 over 119, it kept rising up to 219 over 119, patient received a 2nd dose of clonidine 0.3 mg once. Patient continued to be disoriented, she was admitted for further management, a brain MRI was unremarkable, neurology consult still pending. On my assessment, granddaughter was at bedside, she stated that the patient was doing better compared to the morning, patient is still disoriented, appears confused, in no significant distress. Current blood pressure is 150/80, respiratory rate is 18, heart rate is in the 80s, he is currently on nasal cannula at 2 L, which is a home oxygen. Blood work revealed a BNP of 274, troponins were within normal limits. EKG show atrial fibrillation. Chest x-ray was unremarkable, echocardiogram is pending. Allergies: Coded Allergies: Penicillins (Verified Allergy, Unknown, 02/13/23) Home Meds Reported Medications Albuterol Sulfate (Albuterol Sulfate Hfa) 108 Mcg/Act Aer, INH 02/13/23 Lisinopril (Lisinopril) 10 Mg Tab, 1 TAB PO DAILY 02/13/23 Clonidine Hydrochloride (Clonidine Hcl) 0.1 Mg Tab, 1 TAB PO TID 02/13/23 Prednisone (Prednisone) 20 Mg Tab, 1 TAB PO BID 02/13/23 Amlodipine Besylate (Amlodipine Besylate) 10 Mg Tab 07/30/18 Warfarin Sodium (Warfarin Sodium) 2 Mg Tab 07/30/18 Albuterol Sulfate (Ventolin) 2.5 Mg/3 Ml Nb 07/30/18 Amlodipine Besylate (Amlodipine Besylate) 5 Mg Tab 07/30/18 Metoprolol Succinate (Metoprolol Succinate Er) 100 Mg Tab 07/30/18 Alendronate Sodium (Alendronate Sodium) 70 Mg Tab 07/30/18 Glipizide (Glipizide Er) 2.5 Mg Tab 07/30/18 [Nifedipine] No Conflict Check 07/30/18 Hydralazine Hcl (Hydralazine Hcl) 10 Mg Tab 07/30/18 Hydralazine Hcl (Hydralazine Hcl) 50 Mg Tab 07/30/18 Buspirone Hcl (Buspirone Hcl) 7.5 Mg Tab 07/30/18 Duloxetine Hydrochloride (Duloxetine Hydrochloride) 30 Mg Cap 07/30/18 Current Medications Current Medications Medications (Trade) Dose Ordered Sig/Nida Route PRN Reason Start Time Stop Time Status Last Admin Nitroglycerin (Ntrostat Sublingual) 0.4 mg Q5MINP PRN SL FOR CHEST PAIN 04/03/24 15:45 04/03/24 16:16 DC Morphine Sulfate 2 mg Q30M PRN IV FOR CHEST PAIN 04/03/24 15:45 04/03/24 16:16 DC Levofloxacin/ Dextrose 100 ml @ 100 mls/hr DAILY IV 04/04/24 10:00 04/03/24 16:25 DC Hydralazine HCl (Apresoline Injection) 20 mg Q4HPRN PRN IV sbp >180 04/03/24 15:45 Apixaban (Eliquis) 5 mg BID PO 04/03/24 22:00 04/03/24 16:15 DC Nitroglycerin (Ntrostat Sublingual) 0.4 mg Q5MINP PRN SL FOR CHEST PAIN 04/03/24 16:15 Morphine Sulfate 2 mg Q30M PRN IV FOR CHEST PAIN 04/03/24 16:15 Apixaban (Eliquis) 2.5 mg BID PO 04/03/24 16:15 Levofloxacin 100 ml @ 100 mls/hr DAILY IV 04/04/24 10:00 Review of Systems Can not perform due to patient being disoriented Vital Signs Vital Signs Date Time Temp Pulse Resp B/P (MAP) Pulse Ox O2 Delivery O2 Flow Rate FiO2 04/03/24 15:14 119/62 04/03/24 11:30 88 22 98 04/03/24 07:30 Nasal Cannula* 2 28 04/03/24 07:30 97.8 97.8 Physical Exam General: Disoriented x0 HEENT: Head is normocephalic and atraumatic. Pupils are equal, round, and reactive to light. Extraocular muscles are intact. No nasal discharge. No facial trauma. Intraoral exam shows moist mucous membranes with no tonsillar enlargement or exudate. Neck: Supple with no cervical lymphadenopathy No meningismus. No goiter. Heart: irregularly irregular Lungs: Equal breath sounds bilaterally with no wheezing, rales, or rhonchi. There is no chest wall tenderness or instability. Abdomen: No external sign of injury. Bowel sounds are present. Abdomen is soft, nontender. No rebound, no guarding, no rigidity. There are no palpable masses. There is no flank pain on exam. Extremities: Strong peripheral pulses. There is no clubbing, no cyanosis, and no edema. Skin: No rash. Labs/Diagnostic Data Labs Test 04/03/24 08:34 04/03/24 04:30 04/03/24 02:29 Range/Units Prothrombin Time 11.4 9.3-11.8 sec Prothrombin Time INR 1.08 0.9-1.15 Urine Color Light orange Yellow Urine Clarity Turbid H Clear Urine pH 5.5 5.0-9.0 Urine Specific [place] 1.027 1.001-1.035 Urine Protein 2+ H Negative Urine Ketones Trace Negative Urine Blood Trace H Negative /uL Urine Nitrite Negative Negative Urine Bilirubin 1+ H Negative Urine Urobilinogen 2 H Negative mg/dL Urine Leukocyte Esterase Negative Negative /uL Urine RBC 2 0 - 4 /hpf Urine Microscopic WBC 8 H 0-5 /HPF Urine Squamous Epithelial Cells None seen <5 /hpf Urine Bacteria Few H None Seen /hpf Urine Hyaline Casts Few 0 - 2 /lpf Urine Granular Casts Mod 0 /lpf Urine Mucus Few None Seen Urine Glucose 1+ H Normal mg/dL White Blood Count 8.9 4.4-10.8 10^3/uL Red Blood Count 4.65 4.0-5.20 10^6/uL Hemoglobin 13.7 12.2-16.2 g/dL Hematocrit 40.5 36.0-46.0 % Mean Corpuscular Volume 87.2 80.0-100.0 fL Mean Corpuscular Hemoglobin 29.4 28.0-32.0 pg Mean Corpuscular Hemoglobin Concent 33.7 32.0-36.0 g/dL Red Cell Distribution Width 14.9 H 11.8-14.3 % Platelet Count 200 140-450 10^3/uL Mean Platelet Volume 7.8 6.9-10.8 fL Neutrophils (%) (Auto) 74.0 37.0-80.0 % Lymphocytes (%) (Auto) 16.9 10.0-50.0 % Monocytes (%) (Auto) 5.3 0.0-12.0 % Eosinophils (%) (Auto) 2.6 0.0-7.0 % Basophils (%) (Auto) 1.2 0.0-2.0 % Neutrophils # (Auto) 6.6 1.6-8.6 10 ^3/uL Lymphocytes # (Auto) 1.5 0.4-5.4 10 ^3/uL Monocytes # (Auto) 0.5 0-1.3 10 ^3/uL Eosinophils # (Auto) 0.2 0-0.8 10 ^3/uL Basophils # (Auto) 0.1 0-0.2 10 ^3/uL Nucleated Red Blood Cells 0.2 % Sodium Level 138 136-145 mmol/L Potassium Level 4.3 3.5-5.1 mmol/L Chloride Level 103 98-107 mmol/L Carbon Dioxide Level 26 20-31 mmol/L Anion Gap 9 5-15 Blood Urea Nitrogen 20 9-23 mg/dL Creatinine 1.48 H 0.550-1.02 mg/dL Glomerular Filtration Rate Calc 34 >90 mL/min BUN/Creatinine Ratio 13.5 10.0-20.0 Serum Glucose 250 H 74-106 mg/dL Lactic Acid Level 1.7 0.4-2.0 mmol/L Calcium Level 10.6 H 8.7-10.4 mg/dL Troponin I High Sensitivity 14 </=34 ng/L B-Type Natriuretic Peptide 274.78 0-100 pg/mL Assessment Hypertensive emergency Hypertensive encephalopathy Atrial fibrillation, controlled rate History of ischemic stroke Hyperlipidemia COPD Obesity Plan/Recommendation Continue hydralazine 10 mg IV p.r.n. if BP is more than 180, aim for 25% reduction in blood pressure in the next 12 hours AFib is currently in controlled rate, given rapid correction of blood pressure we will currently hold off home dose beta-eddie Aspirin 81 mg p.o. q.d. Lipitor 40 mg p.o. q.d. [id number]: 6 points Eliquis 2.5 mg p.o. b.i.d. Follow-up neurology recommendations Pending echocardiogram Case was discussed with Dr. Patel Plan discussed with: Other (Granddaughter) BRIDGETTE ESPITIA RESIDENT Apr 03, 2024 17:54
--- NOTE | 2024-04-03 19:25 | DVHINCON2 ---
Date of service: Apr 03, 2024 Referring Physician Genoveva Ruelas MD Reason for Consultation Speech disturbance, altered sensorium History of Present Illness The patient is an 84-year-old female seen for evaluation regarding confusion, depressed sensorium, difficulty talking, reportedly ongoing for the past 3 days. Has a known history of previous stroke with several years ago, with resultant right-sided weakness and speech disturbance. Also has a known history of paroxysmal atrial fibrillation, reportedly on warfarin, with subtherapeutic INR noted on admission. Persistence and worsening of the above problems prompted the patient to seek medical attention, and the patient was brought to [facility] emergency room for further evaluation. Initial head CT scan performed was unremarkable for acute pathology. CT angiogram of the head and neck did not reveal any large vessel occlusion target lesion. The patient was subsequently admitted for further evaluation. Contusion had been persistent and fluctuating since. An MRI study of the brain performed revealed no acute pathology, did show evidence of a chronic left cerebral infarct. Past Medical History Significant for previous stroke, paroxysmal atrial fibrillation, hypertension. Allergies: Coded Allergies: Penicillins (Verified Allergy, Unknown, 02/13/23) Home Meds Reported Medications Albuterol Sulfate (Albuterol Sulfate Hfa) 108 Mcg/Act Aer, INH 02/13/23 Lisinopril (Lisinopril) 10 Mg Tab, 1 TAB PO DAILY 02/13/23 Clonidine Hydrochloride (Clonidine Hcl) 0.1 Mg Tab, 1 TAB PO TID 02/13/23 Prednisone (Prednisone) 20 Mg Tab, 1 TAB PO BID 02/13/23 Amlodipine Besylate (Amlodipine Besylate) 10 Mg Tab 07/30/18 Warfarin Sodium (Warfarin Sodium) 2 Mg Tab 07/30/18 Albuterol Sulfate (Ventolin) 2.5 Mg/3 Ml Nb 07/30/18 Amlodipine Besylate (Amlodipine Besylate) 5 Mg Tab 07/30/18 Metoprolol Succinate (Metoprolol Succinate Er) 100 Mg Tab 07/30/18 Alendronate Sodium (Alendronate Sodium) 70 Mg Tab 07/30/18 Glipizide (Glipizide Er) 2.5 Mg Tab 07/30/18 [Nifedipine] No Conflict Check 07/30/18 Hydralazine Hcl (Hydralazine Hcl) 10 Mg Tab 07/30/18 Hydralazine Hcl (Hydralazine Hcl) 50 Mg Tab 07/30/18 Buspirone Hcl (Buspirone Hcl) 7.5 Mg Tab 07/30/18 Duloxetine Hydrochloride (Duloxetine Hydrochloride) 30 Mg Cap 07/30/18 Current Medications Current Medications Medications (Trade) Dose Ordered Sig/Nida Route PRN Reason Start Time Stop Time Status Last Admin Nitroglycerin (Ntrostat Sublingual) 0.4 mg Q5MINP PRN SL FOR CHEST PAIN 04/03/24 15:45 04/03/24 16:16 DC Morphine Sulfate 2 mg Q30M PRN IV FOR CHEST PAIN 04/03/24 15:45 04/03/24 16:16 DC Levofloxacin/ Dextrose 100 ml @ 100 mls/hr DAILY IV 04/04/24 10:00 04/03/24 16:25 DC Hydralazine HCl (Apresoline Injection) 20 mg Q4HPRN PRN IV sbp >180 04/03/24 15:45 Apixaban (Eliquis) 5 mg BID PO 04/03/24 22:00 04/03/24 16:15 DC Nitroglycerin (Ntrostat Sublingual) 0.4 mg Q5MINP PRN SL FOR CHEST PAIN 04/03/24 16:15 Morphine Sulfate 2 mg Q30M PRN IV FOR CHEST PAIN 04/03/24 16:15 Apixaban (Eliquis) 2.5 mg BID PO 04/03/24 16:15 04/03/24 17:40 Levofloxacin 100 ml @ 100 mls/hr DAILY IV 04/04/24 10:00 Review of Systems Unobtainable at this time Vital Signs Vital Signs Date Time Temp Pulse Resp B/P (MAP) Pulse Ox O2 Delivery O2 Flow Rate FiO2 04/03/24 17:30 80 24 153/75 (101) 97 04/03/24 07:30 Nasal Cannula* 2 28 04/03/24 07:30 97.8 97.8 Physical Exam Mental status: The patient was asleep when seen, arousable to loud voice. Remains somnolent. Speech output limited to 1-2 word phrases, mumbling, hard to comprehend. Disoriented to place and time. Cranial nerves II through XII: Pupils equally reactive to light. Extraocular muscles intact. No gross facial asymmetry seen. Motor examination: At least the 2 to 2+/5 at the left arm, 1 to 1+/5 at the right arm, 1 to 1+/5 at both legs. Note that examination is limited by poor cooperation. Sensory examination: Perceives pain at all limbs. Deep tendon reflexes: Absent all over. Toes neutral to plantar stimulation. Labs/Diagnostic Data Labs Test 04/03/24 08:34 04/03/24 04:30 04/03/24 02:29 Range/Units Prothrombin Time 11.4 9.3-11.8 sec Prothrombin Time INR 1.08 0.9-1.15 Urine Color Light orange Yellow Urine Clarity Turbid H Clear Urine pH 5.5 5.0-9.0 Urine Specific [place] 1.027 1.001-1.035 Urine Protein 2+ H Negative Urine Ketones Trace Negative Urine Blood Trace H Negative /uL Urine Nitrite Negative Negative Urine Bilirubin 1+ H Negative Urine Urobilinogen 2 H Negative mg/dL Urine Leukocyte Esterase Negative Negative /uL Urine RBC 2 0 - 4 /hpf Urine Microscopic WBC 8 H 0-5 /HPF Urine Squamous Epithelial Cells None seen <5 /hpf Urine Bacteria Few H None Seen /hpf Urine Hyaline Casts Few 0 - 2 /lpf Urine Granular Casts Mod 0 /lpf Urine Mucus Few None Seen Urine Glucose 1+ H Normal mg/dL White Blood Count 8.9 4.4-10.8 10^3/uL Red Blood Count 4.65 4.0-5.20 10^6/uL Hemoglobin 13.7 12.2-16.2 g/dL Hematocrit 40.5 36.0-46.0 % Mean Corpuscular Volume 87.2 80.0-100.0 fL Mean Corpuscular Hemoglobin 29.4 28.0-32.0 pg Mean Corpuscular Hemoglobin Concent 33.7 32.0-36.0 g/dL Red Cell Distribution Width 14.9 H 11.8-14.3 % Platelet Count 200 140-450 10^3/uL Mean Platelet Volume 7.8 6.9-10.8 fL Neutrophils (%) (Auto) 74.0 37.0-80.0 % Lymphocytes (%) (Auto) 16.9 10.0-50.0 % Monocytes (%) (Auto) 5.3 0.0-12.0 % Eosinophils (%) (Auto) 2.6 0.0-7.0 % Basophils (%) (Auto) 1.2 0.0-2.0 % Neutrophils # (Auto) 6.6 1.6-8.6 10 ^3/uL Lymphocytes # (Auto) 1.5 0.4-5.4 10 ^3/uL Monocytes # (Auto) 0.5 0-1.3 10 ^3/uL Eosinophils # (Auto) 0.2 0-0.8 10 ^3/uL Basophils # (Auto) 0.1 0-0.2 10 ^3/uL Nucleated Red Blood Cells 0.2 % Sodium Level 138 136-145 mmol/L Potassium Level 4.3 3.5-5.1 mmol/L Chloride Level 103 98-107 mmol/L Carbon Dioxide Level 26 20-31 mmol/L Anion Gap 9 5-15 Blood Urea Nitrogen 20 9-23 mg/dL Creatinine 1.48 H 0.550-1.02 mg/dL Glomerular Filtration Rate Calc 34 >90 mL/min BUN/Creatinine Ratio 13.5 10.0-20.0 Serum Glucose 250 H 74-106 mg/dL Lactic Acid Level 1.7 0.4-2.0 mmol/L Calcium Level 10.6 H 8.7-10.4 mg/dL Troponin I High Sensitivity 14 </=34 ng/L B-Type Natriuretic Peptide 274.78 0-100 pg/mL Assessment Probable recrudescence of preexistent neurological deficits from distant stroke, brought about by concurrent active medical problems Probable acute septic/toxicmetabolic/?hypertensive encephalopathy Acute stroke ruled out by unremarkable brain MRI Previous history of stroke with residual left-sided weakness and speech disturbance Possible PAYAL on CKD UTI Initially poorly controlled hypertension Plan/Recommendation Suggest an EEG study be performed to evaluate for occult electrical seizure activity as a cause of altered sensorium Management of concurrent active medical problems potentially contributing to encephalopathy deferred to other specialty services. Avoid sedatives, narcotics and anticholinergics as much as possible. Plan for continued anticoagulation deferred to cardiology service. Will need to obtain further history from the patient's family when available. Plan discussed with: Other (RN) CORINNE DÍAZ MD Apr 03, 2024 19:25
[2024-04-03] MEDS ORDERED: APIXABAN 5 MG TAB PO SCH (22:00)
[2024-04-03 22:52] VITALS: BP 143/83; PULSE 71; RESP 18; TEMP 97.5; O2SAT 98
[2024-04-03 22:53] VITALS: PULSE 82; RESP 20; O2SAT 96
[2024-04-03 23:58] VITALS: BP 143/83; PULSE 71; RESP 18; TEMP 97.5
[2024-04-04] VITALS (7 sets, daily range): BP systolic 143–189; BP diastolic 83–100; PULSE 71–89; RESP 17–18; TEMP 36.6; O2SAT 95–99
[2024-04-04 07:37] LABS: Chloride 104 mmol/L (98-107); Sodium 141 mmol/L (136-145)
[2024-04-04 07:38] LABS: Anion Gap 10 (5-15); Calcium 10.2 mg/dL (8.7-10.4); Carbon Dioxide 27 mmol/L (20-31)
[2024-04-04 07:43] LABS: BUN/Creatinine Ratio 20.6 (10.0-20.0)
[2024-04-04 07:45] LABS: Blood Urea Nitrogen 27 mg/dL (9-23); Glucose 142 mg/dL (74-106)
[2024-04-04 07:47] LABS: Basophils # (auto) 0.1 10 ^3/uL (0-0.2); Basophils % (auto) 1.2 % (0.0-2.0); Eosinophils # (auto) 0.3 10 ^3/uL (0-0.8); Eosinophils % (auto) 4.7 % (0.0-7.0); Hematocrit 37.4 % (36.0-46.0); Hemoglobin 12.5 g/dL (12.2-16.2); Lymphocytes # (auto) 1.2 10 ^3/uL (0.4-5.4); Lymphocytes % (auto) 17.8 % (10.0-50.0); Mean Corpuscular Hemoglobin 29.4 pg (28.0-32.0); Mean Corpuscular Hgb Conc. 33.5 g/dL (32.0-36.0); Mean Corpuscular Volume 87.5 fL (80.0-100.0); Monocytes # (auto) 0.7 10 ^3/uL (0-1.3); Monocytes % (auto) 9.6 % (0.0-12.0); Neutrophils # (auto) 4.6 10 ^3/uL (1.6-8.6); Neutrophils % (auto) 66.7 % (37.0-80.0); Nucleated Red Blood Cells % 0.3 %; Platelet Count (auto) 186 10^3/uL (140-450); Red Blood Cells 4.27 10^6/uL (4.0-5.20); Red Cell Distribution Width 14.8 % (11.8-14.3); White Blood Cell 6.9 10^3/uL (4.4-10.8)
[2024-04-04] MEDS ORDERED: levoFLOXacin 500MG 100 ML IV SCH (10:00)
[2024-04-04] MEDS: levoFLOXacin 250MG 100 ML IV SCH (10:00)
[2024-04-04] MEDS: METOPROLOL TARTRATE 50 MG TAB PO ONE (11:56)
[2024-04-04] MEDS: cloNIDine HCL 0.1 MG TAB PO ONE (11:56)
--- NOTE | 2024-04-04 13:48 | DVHDS2 ---
New Physician D'charge PN Admitting Diagnosis Admitting Diagnosis aloc Discharge Diagnosis uncontrolled htn aloc Operations or Procedures none Reason(s) For Hospitalization Surgery Hospital Course 84 F who was BIBA for confusion and aloc. As per family she had confusion with inability to speak. SHe was admitted to the hospital and had head CT, head/neck CTA, MRI brain which were all negative. UA was negative for UTI. Her CBC and chem panel were nml. CXR was clear. Blood cultures were negative. The patients condition improved and she is now able to follow commands and speak. she will be dc home with outpt follow up via [facility]. Treatment Plan Discharge Condition of Discharge Good Disposition Home Discharge Instructions Diet: Cardiac 2g Na,low cholest Activity: No Restrictions, As Tolerated Medications: see med sheet Follow Up Care Follow Up/Referral: pcp Discharge Statement: "Patient was advised to return to the ER or call 911 if any headaches, dizziness, shortness of breath, chest pain, abdominal pain, bleeding, fevers, or worsening of medical condition. Patient was counseled about treatment plan, medications, possible side effects, patientverbalized understanding. All questions were answered to the best of my ability. This discharge took greater then 30 minutes in planning, reviewing documentation, counseling the patient, and discussing with other team members." SABRINA SWAN MD Apr 04, 2024 13:48
--- NOTE | 2024-04-04 14:35 | DVHPN2 ---
Progress Note Date Seen: Apr 04, 2024 Medical Necessity Reason Pt with a Central, PICC or Fol: No Subjective Patient reports: Feels better Other Systems: pt feels well wth family Objective vital signs Vital Sign Date Time Temp Pulse Resp B/P (MAP) Pulse Ox O2 Delivery O2 Flow Rate FiO2 04/04/24 12:12 36.6 85 04/04/24 11:56 189/100 04/04/24 08:40 18 99 04/04/24 08:00 Room Air* 0 21 Total Intake and Output 04/03/24 04/03/24 04/04/24 15:00 23:00 07:00 Intake Total 500 ml Balance 500 ml medications Current Medications Medications Dose Ordered Sig/Nida Route Start Time Stop Time Status Last Admin Dose Admin Hydralazine HCl 20 mg Q4HPRN PRN IV 04/03/24 15:45 Nitroglycerin 0.4 mg Q5MINP PRN SL 04/03/24 16:15 Morphine Sulfate 2 mg Q30M PRN IV 04/03/24 16:15 Apixaban 2.5 mg BID PO 04/03/24 16:15 04/04/24 11:34 2.5 MG Levofloxacin 100 ml @ 100 mls/hr DAILY IV 04/04/24 10:00 Examination: GENERAL:Abnormal, HEENT:Abnormal, LUNGS:Abnormal, CVS:Abnormal, ABDOMEN:Abnormal laboratory and microbiology Laboratory Tests 04/04/24 06:40 Test 04/04/24 06:40 Range/Units Serum Glucose 142 H 74-106 mg/dL Microbiology Date/Time Source Procedure Growth Status 04/03/24 04:30 Voided Urine Urine Culture - Preliminary Resulted 04/03/24 03:00 Blood Blood Culture - Preliminary NO GROWTH AFTER 24 HOURS OF INCUBATION. Resulted Problem List/Assessment/Plan Problem List/Assessment/Plan r/o cva afib htn cont doac fu brain imaging resume home meds tele stable Plan discussed with: Patient Date of Service: Apr 04, 2024 Billing Provider: SUZETTE ZAMORANO MD Common Visit Codes: NOT BILLABLE SUZETTE ZAMORANO MD Apr 04, 2024 14:35
--- NOTE | 2024-04-04 14:41 | DVHEEG2 ---
Neurology EEG Procedural Note Procedural Note Patient status: Confused. Diagnosis: Acute encephalopathy rule out seizure. Conditions of recording: This is an 18 channel EEG recording with electrode placement following guidelines as per the 10/20 international classification. Photic stimulation was performed as activating procedure. Technical summary: The predominant activity throughout the entire recording appeared to be reactive low frequency frequency theta activity, which appeared to be symmetrical. No definite epileptiform discharges or electrographic seizures were seen. Photic stimulation did not provide any further abnormalities. Impression: This appears to be abnormal EEG recording consistent with the presence of a diffuse nonspecific encephalopathic state. Clinical correlation is imperative CORINNE DÍAZ MD Apr 04, 2024 14:41
--- NOTE | 2024-04-04 14:41 | DVHPN2 ---
Progress Note - Dictate Date Seen: Apr 04, 2024 Medical Necessity Reason Pt with a Central, PICC or Fol: No Subjective No acute neurological issues noted when seen. Remainssomnolent, somewhat more responsive and improved. EEG negative for electrical seizure activity vital signs Vital Sign Date Time Temp Pulse Resp B/P (MAP) Pulse Ox O2 Delivery O2 Flow Rate FiO2 04/04/24 12:12 36.6 85 04/04/24 11:56 189/100 04/04/24 08:40 18 99 04/04/24 08:00 Room Air* 0 21 Total Intake and Output 04/03/24 04/03/24 04/04/24 15:00 23:00 07:00 Intake Total 500 ml Balance 500 ml medications Current Medications Medications Dose Ordered Sig/Nida Route Start Time Stop Time Status Last Admin Dose Admin Hydralazine HCl 20 mg Q4HPRN PRN IV 04/03/24 15:45 Nitroglycerin 0.4 mg Q5MINP PRN SL 04/03/24 16:15 Morphine Sulfate 2 mg Q30M PRN IV 04/03/24 16:15 Apixaban 2.5 mg BID PO 04/03/24 16:15 04/04/24 11:34 2.5 MG Levofloxacin 100 ml @ 100 mls/hr DAILY IV 04/04/24 10:00 objective Mental status: Asleep when seen, arousable to voice. Intemittently mumbles incomprehensibly Cranial nerves II-XII: Grossly unremarkable Motor examination: At least 2 to 2+/5 at all limbs Sensory: Perceives pain at all limbs laboratory and microbiology Laboratory Tests 04/04/24 06:40 Test 04/04/24 06:40 Range/Units Serum Glucose 142 H 74-106 mg/dL Assessment/Plan -Probable recrudescence of preexistent neurological deficits from distant stroke, brought about by concurrent active medical problems -Probable acute septic/toxicmetabolic/?hypertensive encephalopathy -Acute stroke ruled out by unremarkable brain MRI -Previous history of stroke with residual left-sided weakness and speech disturbance -Possible PAYAL on CKD -UTI -Initially poorly controlled hypertension Management of concurrent active medical problems contributing to encephalopathy deferred to other specialty services. Continue supportive care. Avoid psychoactive meds as much as possible. Plan discussed with: CORINNE Munroe MD Apr 04, 2024 14:41
== END 2024-04-04 14:30 | disposition home or self-care (01) | DRG 304 ==
LOC: EDBD 01:59 → ER 02:03 → OVERFLOW 15:36 → TELE-WESTW 22:52
PROVIDERS: ADMIT Internal Medicine; ATTEND Internal Medicine
DX: I16.1 Hypertensive emergency (principal); G93.41 Metabolic encephalopathy; I50.31 Acute diastolic (congestive) heart failure; I67.4 Hypertensive encephalopathy; N39.0 Urinary tract infection, site not specified; I69.351 Hemiplegia and hemiparesis following cerebral infarction affecting right dominant side; I69.354 Hemiplegia and hemiparesis following cerebral infarction affecting left non-dominant side; N17.9 Acute kidney failure, unspecified; I13.0 Hypertensive heart and chronic kidney disease with heart failure and stage 1 through stage 4 chronic kidney disease, or unspecified chronic kidney disease; I48.0 Paroxysmal atrial fibrillation; J44.9 Chronic obstructive pulmonary disease, unspecified; E66.9 Obesity, unspecified; R26.2 Difficulty in walking, not elsewhere classified; R79.1 Abnormal coagulation profile; E78.5 Hyperlipidemia, unspecified; Z88.0 Allergy status to penicillin; Z79.899 Other long term (current) drug therapy; Z79.01 Long term (current) use of anticoagulants; Z68.32 Body mass index [BMI] 32.0-32.9, adult; N18.9 Chronic kidney disease, unspecified; E11.22 Type 2 diabetes mellitus with diabetic chronic kidney disease
CPT/HCPCS: 36415; 70450; 70496; 70498; 70551; 71045; 80048; 81001; 83605; 83880; 84484; 85025; 85610; 87040; 87086; 93005; 95819; 96374; 97163; 99291; G0378